=== PATIENT | female | born 1985 | race Caucasian/White ===

== ENCOUNTER → 2018-10-28 16:42 | Outpatient (CLI) | payer BC, SELFPAY ==
[2018-10-28 15:00] VITALS: BMI 21.2
[2018-11-02 15:27] LABS: HPV APTIMA, High Risk Negative (Negative)
== END ==
PROVIDERS: Referring Provider Obstetrics & Gynecology; Visit Provider Obstetrics & Gynecology
DX: Z12.4 Encounter for screening for malignant neoplasm of cervix (principal)
CPT/HCPCS: 87624; 88175; G0145

== ENCOUNTER → 2019-03-23 17:18 | Outpatient (CLI) | payer BC, SELFPAY ==
[2019-03-23 16:34] VITALS: BMI 21.2
== END ==
PROVIDERS: Visit Provider Obstetrics & Gynecology
DX: N89.8 Other specified noninflammatory disorders of vagina (principal)
CPT/HCPCS: 87070; 87205

== ENCOUNTER → 2021-12-19 | Outpatient (CLI) | payer BC, SELFPAY | END | disposition home or self-care (01) | LOC: LABSPEC 13:23 | PROVIDERS: Referring Provider Obstetrics & Gynecology; Visit Provider Obstetrics & Gynecology | DX: N76.0 Acute vaginitis (principal) | CPT/HCPCS: 87070; 87205 ==

== ENCOUNTER → 2022-03-14 | Outpatient (CLI) | payer BC, SELFPAY ==
--- NOTE | 2022-03-14 15:41 | MRI_ITS ---
STUDY: MR Knee W/O Contrast 03/14/2022 5:01 PM REASON FOR EXAM: Female, 36 years old. CONTUSION right knee pain TECHNIQUE: Standardized fat and water weighted pulse sequences were obtained in all 3 orthogonal planes. COMPARISON: None. FINDINGS: Normal medial meniscus. Normal hyaline cartilage of the medial femorotibial compartment. There is reactive marrow edema of the medial femoral condyle and tibial plateau. Mild impaction fracture of the lateral femoral condyle. Normal medial collateral ligamentous complex (MCL). Normal distal semimembranosus, gracilis and semitendinosus tendons. Normal lateral meniscus. Normal hyaline cartilage of the lateral femorotibial compartment. Normal lateral femoral condyle and tibial plateau. Normal proximal tibiofibular articulation. Normal lateral collateral (fibular) ligament. Normal popliteus tendon. Normal biceps femoris tendon. There is a partial tear of the of the ACL. Normal posterior cruciate ligament (PCL). Normal congruent patellofemoral articulation. Normal hyaline cartilage of the patellofemoral compartment. Normal medial and lateral patellar retinaculum. Normal quadriceps tendon. Normal patellar tendon. Normal Hoffa''s fat pad. There is a moderate volume joint effusion. The soft tissues are unremarkable. The otherwise visualized osseous structures are unremarkable. MRI/Lower Ext Joint Only (Routine) IMPRESSION: There is a partial tear of the of the ACL. There is a moderate volume joint effusion. There is reactive marrow edema of the medial tibial plateau. There is reactive marrow edema of the medial femoral condyle and tibial plateau. Mild impaction fracture of the lateral femoral condyle. Electronically Signed: Chad Oliva MD at 17:11 EDT ,
== END | disposition home or self-care (01) ==
PROVIDERS: Visit Provider Physician Assistant
DX: S72.421A Displaced fracture of lateral condyle of right femur, initial encounter for closed fracture (principal); S83.511A Sprain of anterior cruciate ligament of right knee, initial encounter; S80.01XA Contusion of right knee, initial encounter; X58.XXXA Exposure to other specified factors, initial encounter
CPT/HCPCS: 73721